=== PATIENT | female | born 1955 | race Two or more races ===

== ENCOUNTER 2022-12-07 10:33 | Emergency (ER) | payer OTHER, MEDICAID ==
[~2022-12-07] VITALS: Ht 162.6 cm; Wt 73.2 kg
[2022-12-07 11:57] LABS: Urine Bacteria NONE SEEN /hpf (None Seen); Urine Blood TRACE /uL (Negative); Urine Mucus FEW (None Seen); Urine Specific Gravity 1.025 (1.001-1.035); Urine WBC 2 /hpf (0 - 5)
[2022-12-07 12:01] LABS: Basophils # (auto) 0.1 10 ^3/uL (0-0.2); Basophils % (auto) 1.2 % (0.0-2.0); Eosinophils # (auto) 0.3 10 ^3/uL (0-0.8); Eosinophils % (auto) 3.9 % (0.0-7.0); Hematocrit 45.4 % (36.0-46.0); Hemoglobin 14.8 g/dL (12.2-16.2); Lymphocytes # (auto) 2.6 10 ^3/uL (0.4-5.4); Lymphocytes % (auto) 37.7 % (10.0-50.0); Mean Corpuscular Hgb Conc. 32.7 g/dL (32.0-36.0); Mean Corpuscular Volume 82.6 fL (80.0-100.0); Monocytes # (auto) 0.5 10 ^3/uL (0-1.3); Monocytes % (auto) 6.6 % (0.0-12.0); Neutrophils # (auto) 3.5 10 ^3/uL (1.6-8.6); Neutrophils % (auto) 50.6 % (37.0-80.0); Nucleated Red Blood Cells % 0.3 %; Red Cell Distribution Width 14.9 % (11.8-14.3); White Blood Cell 6.9 10^3/uL (4.4-10.8)
[2022-12-07 12:36] LABS: Potassium 4.3 mmol/L (3.5-5.1)
[2022-12-07 12:41] LABS: Albumin 3.5 g/dL (3.4-5.0); BUN/Creatinine Ratio 18.8 (10.0-20.0); Calcium 8.5 mg/dL (8.5-10.1)
[2022-12-07 12:51] LABS: Bilirubin, Total 0.4 mg/dL (0.2-1.0); Total Protein 7.8 g/dL (6.4-8.2)
[2022-12-07 14:57] VITALS: BP 132/84
== END 2022-12-07 15:02 | disposition home or self-care (01) ==
LOC: ER 10:33
DX: K44.9 Diaphragmatic hernia without obstruction or gangrene (principal); R74.8 Abnormal levels of other serum enzymes; R79.9 Abnormal finding of blood chemistry, unspecified; I10 Essential (primary) hypertension
CPT/HCPCS: 36415; 74176; 80053; 81001; 84484; 85025

== ENCOUNTER 2024-05-09 22:29 | Emergency (ER) | payer OTHER ==
[~2024-05-09] VITALS: Ht 162.6 cm; Wt 75.0 kg
[2024-05-09 23:46] LABS: Basophils # (auto) 0 10 ^3/uL (0-0.2); Basophils % (auto) 0.6 % (0.0-2.0); Eosinophils # (auto) 0.1 10 ^3/uL (0-0.8); Eosinophils % (auto) 0.8 % (0.0-7.0); Hematocrit 43.8 % (36.0-46.0); Hemoglobin 14.9 g/dL (12.2-16.2); Lymphocytes # (auto) 1.4 10 ^3/uL (0.4-5.4); Mean Corpuscular Hemoglobin 29.1 pg (28.0-32.0); Mean Corpuscular Hgb Conc. 34.1 g/dL (32.0-36.0); Mean Corpuscular Volume 85.4 fL (80.0-100.0); Monocytes # (auto) 0.7 10 ^3/uL (0-1.3); Monocytes % (auto) 9.4 % (0.0-12.0); Neutrophils # (auto) 5.3 10 ^3/uL (1.6-8.6); Neutrophils % (auto) 70.2 % (37.0-80.0); Nucleated Red Blood Cells % 0.1 %; Platelet Count (auto) 195 10^3/uL (140-450); Red Blood Cells 5.13 10^6/uL (4.0-5.20); Red Cell Distribution Width 13.4 % (11.8-14.3); White Blood Cell 7.6 10^3/uL (4.4-10.8)
[2024-05-09 23:59] LABS: Potassium 4.1 mmol/L (3.5-5.1); Sodium 138 mmol/L (136-145)
[2024-05-10] LABS: Anion Gap 7 (5-15); Carbon Dioxide 23 mmol/L (20-31)
[2024-05-10 00:01] LABS: Calcium 9.5 mg/dL (8.7-10.4)
[2024-05-10 00:05] LABS: BUN/Creatinine Ratio 9.9 (10.0-20.0)
[2024-05-10 00:06] LABS: Magnesium 2.4 mg/dL (1.6-2.6)
[2024-05-10 00:09] LABS: Blood Urea Nitrogen 7 mg/dL (9-23); Chloride 108 mmol/L (98-107); Glucose 121 mg/dL (74-106)
[2024-05-10] MEDS ORDERED: GABA-1250 PO (00:31)
--- NOTE | 2024-05-10 00:31 | ED.PDOC ---
Musculoskeletal HPI Comments This patient is a pleasant but Macedonian-speaking only 68-year-old female who was brought in with her daughter today due to complaints of bilateral lower extremity cramps that she has had for past five years that have worsened over the past several weeks. Patient denies any fever nausea or vomiting related to the cramps. Patient denies any recent travel or new food sources. Patient states the cramps come on at night and has been unrelenting at times. Patient states the pain during the events as severe. Patient denies any fever or vomiting, but states intermittent nausea. Vital signs were stable at arrival. Chief Complaint: Lower Extremity Time Seen by MD: 23:19 Primary Care Provider: ELDER Reviewed Notes: Nurses Notes Allergies: Coded Allergies: NO KNOWN ALLERGIES (Unverified , 12/07/22) Information Source: Patient, Relative (Child) Mode of Arrival: Ambulatory Location: Bilateral Extremity Location: Leg Timing: Came on: Suddenly, Other (Five years) Prehospital treatment: Pain Meds Severity: Moderate Able to Move Extremity: Yes Bear Weight: Fully Pain: Severe Hand Dominance: Right Mechanism: Spontaneous Circumstances: Spontaneous Onset of Symptoms: Spontaneous Symptoms: Pain DVT Risk Factors: NONE Past Medical History PAST MEDICAL HISTORY: HTN Past Medical History (Other): Leg cramps Surgical History: Unknown EQUIPMENT DETAILER 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 DETAILER Hx Family History Family History: Unknown Social History Smoker: Non-Smoker Alcohol: Denies ETOH Use Drugs: Denies Drug Use Lives In: Home Constitutional: denies: chills, diaphoresis, fatigue, fever, malaise, sweats, weakness, others EENTM: denies: blurred vision, double vision, ear bleeding, ear discharge, ear drainage, ear pain, ear ringing, eye pain, eye redness, hearing loss, mouth pain, mouth swelling, nasal discharge, nose bleeding, nose congestion, nose pain, photophobia, tearing, throat pain, throat swelling, voice changes, others Respiratory: denies: cough, hemoptysis, orthopnea, SOB at rest, shortness of breath, SOB with excertion, stridor, wheezing, others Cardiovascular: denies: chest pain, dizzy spells, diaphoresis, Dyspnea on exertion, edema, irregular heart beat, left arm pain, lightheadedness, palpitations, PND, syncope, others Gastrointestinal: denies: abdomen distended, abdominal pain, blood streaked bowels, constipated, diarrhea, dysphagia, difficulty swallowing, hematemesis, melena, nausea, poor appetite, poor fluid intake, rectal bleeding, rectal pain, vomiting, others Genitourinary: denies: abnormal vagina bleeding, burning, dyspareunia, dysuria, flank pain, frequency, hematuria, incontinence, pain, , vagina discharge, urgency, others Neurological: denies: dizziness, fainting, headache, left sided numbness, left sided weakness, numbness, paresthesia, pre-existing deficit, right sided numbness, right sided weakness, seizure, speech problems, tingling, tremors, weakness, others Musculoskeletal: reports: others (bilateral lower extremity cramps); denies: back pain, gout, joint pain, joint swelling, muscle pain, muscle stiffness, neck pain Integumetry: denies: bruises, change in color, change in hair/nails, dryness, laceration, lesions, lumps, rash, wounds, others Allergic/Immunocompromised: denies: Difficulty Healing, Frequent Infections, Hives, Itching, others Hematologic/Lymphatic: denies: anemia, blood clots, easy bleeding, easy bruising, swollen glands, others Endocrine: denies: excessive hunger, excessive sweating, excessive thirst, excessive urination, flushing, intolerance to cold, intolerance to heat, unexplained weight gain, unexplained weight loss, others Psychiatric: denies: anxiety, bipolar disorder, depression, hopeless, panic disorder, schizophrenia, sleepless, suicidal, others Physical Exam General Appearance: Mild Distress (Patient was in moderate distress due to some leg pain concerns that occurred due to the cramping events.), Normal HEENT: Normal ENT Inspection, Pharynx Normal, TMs Normal Neck: Full Range of Motion, Non-Tender, Normal, Normal Inspection Respiratory: Chest Non-Tender, Lungs Clear, No Accessory Muscle Use, No Respiratory Distress, Normal Breath Sounds Cardiovascular: No Edema, No JVD, No Murmur, No Gallop, Normal Peripheral Puls es, Regular Rate/Rhythm Breast Exam: Deferred Gastrointestinal: No Organomegaly, Non Tender, No Pulsatile Mass, Normal Bowel Sounds, Soft Genitalia: Deferred Pelvic: Deferred Rectal: Deferred Extremities: Other (Relatively unremarkable evaluation of bilateral lower extremities. No signs of trauma. No edema or ecchymosis. Distal neurovascularly intact.) Neurologic: Alert, shop service technician II-XII nml as Tested, No Motor Deficits, Normal Affect, Normal Mood, No Sensory Deficits Cerebellar Function: Normal Reflexes: Normal Skin: Dry, Normal Color, Warm Lymphatic: No Adenopathy Was a procedure done? Was a procedure done?: No Differential Diagnosis EXT Differential Diagnosis: Other (Sepsis, electrolyte abnormality, magnesium deficiency, leg cramps) X-Ray, Labs, Meds, VS Vital Signs Date Time Temp Pulse Resp B/P (MAP) Pulse Ox O2 Delivery O2 Flow Rate FiO2 05/09/24 22:54 98.1 95 16 132/59 (83) 96 Lab Test 05/09/24 23:27 Range/Units White Blood Count 7.6 4.4-10.8 10^3/uL Red Blood Count 5.13 4.0-5.20 10^6/uL Hemoglobin 14.9 12.2-16.2 g/dL Hematocrit 43.8 36.0-46.0 % Mean Corpuscular Volume 85.4 80.0-100.0 fL Mean Corpuscular Hemoglobin 29.1 28.0-32.0 pg Mean Corpuscular Hemoglobin Concent 34.1 32.0-36.0 g/dL Red Cell Distribution Width 13.4 11.8-14.3 % Platelet Count 195 140-450 10^3/uL Mean Platelet Volume 8.4 6.9-10.8 fL Neutrophils (%) (Auto) 70.2 37.0-80.0 % Lymphocytes (%) (Auto) 19.0 10.0-50.0 % Monocytes (%) (Auto) 9.4 0.0-12.0 % Eosinophils (%) (Auto) 0.8 0.0-7.0 % Basophils (%) (Auto) 0.6 0.0-2.0 % Neutrophils # (Auto) 5.3 1.6-8.6 10 ^3/uL Lymphocytes # (Auto) 1.4 0.4-5.4 10 ^3/uL Monocytes # (Auto) 0.7 0-1.3 10 ^3/uL Eosinophils # (Auto) 0.1 0-0.8 10 ^3/uL Basophils # (Auto) 0 0-0.2 10 ^3/uL Nucleated Red Blood Cells 0.1 % Sodium Level 138 136-145 mmol/L Potassium Level 4.1 3.5-5.1 mmol/L Chloride Level 108 H 98-107 mmol/L Carbon Dioxide Level 23 20-31 mmol/L Anion Gap 7 5-15 Blood Urea Nitrogen 7 L 9-23 mg/dL Creatinine 0.71 0.550-1.02 mg/dL Glomerular Filtration Rate Calc 94 >90 mL/min BUN/Creatinine Ratio 9.9 L 10.0-20.0 Serum Glucose 121 H 74-106 mg/dL Calcium Level 9.5 8.7-10.4 mg/dL Magnesium Level 2.4 1.6-2.6 mg/dL X-Ray, Labs, Meds, VS Comment I personally evaluated all studies performed the ED today. Laboratories were unremarkable for any acute process. Patient had a reasonable magnesium level. Advised the patient and her daughter that she should hydrate well and attempt to utilize [id number] leg cramp medications that contain magnesium. Some of been known to be effective. Patient should follow up with the primary care provider for continued conversations. Time of 1ST Reevaluation: 00:29 Reevaluation 1ST: Improved Consultation: PCP Patient Education/Counseling: Diagnosis, Treatment Family Education/Counseling: Diagnosis, Treatment Departure 1 Departure Time of Disposition: 00:29 Impression: Primary Impression: Leg cramps Disposition: HOME / SELF CARE / HOMELESS Condition: Stable Additional Instructions: Advised patient utilize pain medication if it is effective additionally, trying to locate an [id number] magnesium supplementation to aid in the cramping events. Patient should follow up with the primary care provider for continued conversations. e-Prescriptions Gabapentin (Gabapentin) 300 Mg Cap 1 CAP PO Q6HP PRN, #20 CAP 0 Refills Prov: YVAN LOCKE PAC 05/10/24 Discharged With: Self, Relative Critical Care Note Critical Care Time?: No Stability Stability form required: No Heart Score Heart Score: Heart Score Response (Comments) Value History N/A 0 EKG N/A 0 Age N/A 0 Risk Factors N/A 0 Troponin N/A 0 Total 0 YVAN LOCKE PAC May 10, 2024 00:31
[2024-05-10] MEDS: GABAPENTIN 300 MG CAP PO ONE (01:55)
[2024-05-10 02:15] VITALS: BP 146/81; PULSE 99; RESP 16; TEMP 99; O2SAT 96
== END 2024-05-10 02:30 | disposition home or self-care (01) ==
LOC: ER 22:29
DX: R25.2 Cramp and spasm (principal); I10 Essential (primary) hypertension
CPT/HCPCS: 36415; 80048; 83735; 85025

== ENCOUNTER 2024-06-01 13:10 | Emergency (ER) | payer OTHER ==
[~2024-06-01] VITALS: Ht 162.6 cm; Wt 72.8 kg
[~2024-06-01 13:10] MED LIST: GABA-1250 PO
--- NOTE | 2024-06-01 14:24 | ED.PDOC ---
Eye-HPI HPI Comments 68 Y F, presents to the ED with CC of cough. Patient states, that she has been experiencing cough with associated symptoms of nausea, fever, vomiting, and diarrhea since 05/26/24. Patient denies any chest pain, sob, chills, or body aches. Patient denies tobacco usage, illicit drug usage, or ETOH consumption. Chief Complaint: Cough Time Seen by MD: 14:30 Primary Care Provider: ELDER Estrada Notes: Nurses Notes, Medications, Allergies Allergies: Coded Allergies: NO KNOWN ALLERGIES (Unverified , 12/07/22) Home Meds Active Scripts Amoxicillin Trihydrate (Amoxicillin) 500 Mg Cap, 1 CAP PO TID for 5 Days, #15 CAP Prov:NAZ HUTSON MD 06/01/24 Gabapentin (Gabapentin) 300 Mg Cap, 1 CAP PO Q6HP PRN, #20 CAP 0 Refills Prov:YVAN LOCKE PAC 05/10/24 Information Source: Patient Mode of Arrival: Ambulatory Timing: Days Prehospital treatment: None Lids: Normal Conjunctiva: Normal Cornea: Normal EOM: Normal Slit lamp exam: Normal Mouth: Normal Nose: Normal Sinuses: Normal Oropharynx: Normal Modifying factors: Nothing Associated signs and symptoms: None Past Medical History PAST MEDICAL HISTORY: HTN Surgical History: Unknown UPPER 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 UPPER SHAPER Hx Family History Family History: Unknown Social History Smoker: Non-Smoker Alcohol: Denies ETOH Use Drugs: Denies Drug Use Lives In: Home Respiratory: reports: cough Physical Exam General Appearance: Mild Distress, Normal HEENT: Normal ENT Inspection, Pharynx Normal, TMs Normal Neck: Full Range of Motion, Non-Tender, Normal, Normal Inspection Respiratory: Chest Non-Tender, Lungs Clear, No Accessory Muscle Use, No Respiratory Distress, Normal Breath Sounds Cardiovascular: No Edema, No JVD, No Murmur, No Gallop, Normal Peripheral Pulses, Regular Rate/Rhythm Breast Exam: Deferred Gastrointestinal: No Organomegaly, Non Tender, No Pulsatile Mass, Normal Bowel Sounds, Soft Genitalia: Deferred Pelvic: Deferred Rectal: Deferred Extremities: No calf tenderness, Normal capillary refill, Normal inspection, Normal range of motion, Non-tender, No pedal edema Musculoskeletal : Apperance: Normal Neurologic: Alert, cyber analyst II-XII nml as Tested, No Motor Deficits, Normal Affect, Normal Mood, No Sensory Deficits Cerebellar Function: Normal Reflexes: Normal Skin: Dry, Normal Color, Warm Peripheral Pulses: 3+ Radial (R), 3+ Radial (L) Lymphatic: No Adenopathy Was a procedure done? Was a procedure done?: No EENT DIFF Eye: Bacterial, Chlamydial, Viral Sore Throat: Epiglottitis, Pharyngitis, URI X-Ray, Labs, Meds, VS Vital Signs Date Time Temp Pulse Resp B/P (MAP) Pulse Ox O2 Delivery O2 Flow Rate FiO2 06/01/24 13:30 97.5 97 20 115/64 (81) 96 Patient alert. Complaining of cough. Denies shortness a breath. Vitals stable. No chest pain. No leg swelling. No discoloration. Possible early upper respiratory tract infection. She has good lung sounds. Not in distress. Was given prescription of amoxicillin antibiotic. Explained to the patient. Was told to follow up with her primary care physician. Was told to come back if there is any problem. Time of 1ST Reevaluation: 15:00 Reevaluation 1ST: Improved Patient Education/Counseling: Diagnosis, Treatment Family Education/Counseling: No Family Present Additional Information I reviewed the following notes from patient's past medical encounters: 05/09/24 DX Leg Cramps I discussed treatment and results with medical personnel. Departure 1 Departure Time of Disposition: 16:45 Impression: Primary Impression: Bronchitis Disposition: 01 HOME / SELF CARE / HOMELESS Condition: Good e-Prescriptions Amoxicillin Trihydrate (Amoxicillin) 500 Mg Cap 1 CAP PO TID for 5 Days, #15 CAP Prov: NAZ HUTSON MD 06/01/24 Discharged With: Self Critical Care Note Critical Care Time?: No Stability Stability form required: No Heart Score Heart Score: Heart Score Response (Comments) Value History N/A 0 EKG N/A 0 Age N/A 0 Risk Factors N/A 0 Troponin N/A 0 Total 0 I personally scribed for NAZ HUTSON MD ([email or web address]) on 06/01/24 at 14:24. Electronically submitted by Mer Strong ([email or web address]). I personally scribed for NAZ HUTSON MD ([email or web address]) on 06/01/24 at 14:43. Electronically submitted by Mer Strong ([email or web address]). I personally scribed for NAZ HUTSON MD ([email or web address]) on 06/01/24 at 15:20. Electronically submitted by Mer Strong ([email or web address]). I personally scribed for NAZ HUTSON MD ([email or web address]) on 06/01/24 at 15:31. Electronically submitted by Mer Strong ([email or web address]). I personally scribed for NAZ HUTSON MD ([email or web address]) on 06/01/24 at 16:15. Electronically submitted by Mer Strong ([email or web address]). I personally scribed for NAZ HUTSON MD ([email or web address]) on 06/01/24 at 17:02. Electronically submitted by Mer Strong ([email or web address]). I personally scribed for NAZ HUTSON MD ([email or web address]) on 06/01/24 at 17:16. Electronically submitted by Mer Strong ([email or web address]). NAZ HUTSON MD Jun 01, 2024 14:24
[2024-06-01] MEDS ORDERED: AMOX500C2 PO (16:46)
[2024-06-01 17:58] VITALS: BP 129/62; PULSE 99; RESP 20; TEMP 97.9; O2SAT 96
== END 2024-06-01 18:01 | disposition home or self-care (01) ==
LOC: ER 13:10
DX: J40 Bronchitis, not specified as acute or chronic (principal); I10 Essential (primary) hypertension; Z79.2 Long term (current) use of antibiotics; Z79.899 Other long term (current) drug therapy